=== PATIENT | female | born 1970 | race Caucasian/White ===

== ENCOUNTER → 2021-11-29 | Outpatient (CLI) | payer BC ==
[~2021-11-29] MED LIST: 5-HTP100 MG PO; ASPIRIN CHEWABL81 MG PO; CLARITIN10 MG PO; CRANBERRY CONC1 EACH PO; FISH OIL CONCE1 EAC1 PO; LORTAB 5-325 M1 EACH PO; ONDANSETRON HCL8 MG PO; PRIMROSE OIL PO; RED YEAST RICE600 MG PO; VITAMIN B-121000 MCG PO
== END ==
LOC: CT 14:07
DX: R10.9 Unspecified abdominal pain (principal)
CPT/HCPCS: Q9967